=== PATIENT | female | born 1955 | race Caucasian/White ===

== ENCOUNTER 2016-06-04 23:27 | Emergency (ER) | payer BC ==
--- NOTE | 2016-06-05 02:41 | ED NURSING NOTES ---
Clinical Report - Nurses [facility] [place] [address] 06/04/2016 23:28 [id number] Triage time 00:Jun 05 2016. Acuity: LEVEL 4. Chief Complaint: (left knee pain). 00:12 06/05/16. --00:12 Lizbeth Emerson R.N. 00:07 06/05/16. BP: 168/100. HR: 104. RR: 18. O2 saturation: 100%. Temp: 97.9 F. Pain level now: 02/23. --00:12 Lizbeth Emerson R.N. Weight: 86.1 kg stated. Height/Length: 68 inches Per Patient. BMI: 28.9. --00:06 Lizbeth Emerson R.N. Medications Omeprazole Oral. --00:10 Lizbeth Emerson R.N. Allergies No Known Drug Allergy. --00:10 Lizbeth Emerson R.N. Medication/allergy information source: the patient. --00:12 Lizbeth Emerson R.N. History Arrived by private vehicle. Historian: patient. Accompanied by family. Onset. (1 month injury). 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 pain now anteriorly. severe. took tramadol at home (her dogs meds) and no relief. Has MRI scheduled for next wednesday morning). No fever, weakness, cough or difficulty breathing. Denies muscle aches. PAST MEDICAL HX: The patient is post-menopausal. SOCIAL HX: Never smoker. Occasional alcohol use. No drug use. No infectious disease exposure. ABUSE ASSESSMENT: No report of abuse. SELF HARM ASSESSMENT: A self harm assessment was performed. The patient answered "no" to the question "Have you recently felt down, depressed, or hopeless?", "Have you noticed less interest or pleasure in doing things?", "Do you have thoughts of harming or killing yourself?", "Are you here because you tried to hurt yourself?", "Have you ever tried to hurt yourself before today?", "Have you recently had thoughts about harming or killing others?" and "Do you have any dangerous items in your possession?". FALL RISK ASSESSMENT: Fall risk assessment completed. No fall risk identified. NUTRITIONAL RISK ASSESSMENT: The nutritional risk assessment revealed no deficiencies. FUNCTIONAL ASSESSMENT: Functional assessment: no impairments noted. LEARNING NEEDS ASSESSMENT: The learning needs assessment revealed no barriers. SKIN INTEGRITY ASSESSMENT: Skin integrity risk assessment completed. No skin integrity risk identified. --00:12 Lizbeth Emerson R.N. PROBLEMS: GERD. Anxiety disorder. --00:11 Lizbeth Emerson R.N. ADDITIONAL SURGERIES: Parathyroidectomy. --00:11 Lizbeth Emerson R.N. Interventions ID band on patient. --00:12 Lizbeth Emerson R.N. PHYSICAL ASSESSMENT 00:15 06/05/16. To room via wheelchair. GENERAL / NEURO / PSYCH: Alert. Oriented X 4. Appears in pain. HEENT: Pupils equal, round and reactive to light. Mucous membranes are pink. RESPIRATORY: Breath sounds within normal limits. EXTREMITIES: Extremities atraumatic. Skin intact on the extremities. Skin tenderness is present on the extremities. Pain with weight bearing. She was unable to bear weight. ( left leg is larger than right, palpable mass posterior knee. lt knee is swollen). SKIN: Skin intact. Skin is warm and dry. --00:15 Lizbeth Emerson R.N. NURSING PROGRESS NOTES 00:12 06/05/16. The initial plan of care for this patient includes an assessment with efforts to address impairment of the musculoskeletal system. This plan of care was discussed with the patient. Patient gowned. Reassurance given. Patient identifiers checked. Call light placed in reach. Side rails up x 1. Bed placed in lowest position. Brakes of bed on. Patient ready for evaluation. --00:12 Lizbeth Emerson R.N. 00:33 06/05/2016 Site #1 started via IV in the right antecubital space with an 20g angiocath, with aseptic technique and good blood return; one attempt. Blood drawn: rainbow set. Labeled in the presence of the patient and sent to the lab. Saline lock flushed with 10 mL saline. --00:38 Lizbeth Emerson R.N. 00:34 06/05/2016 Dilaudid (HYDROmorphone HCl PF) IVP 0.5 mg given over 1 minute(s) via site #1. Allergies verified, confirmed 5 rights and sedative warning given to the patient. IV patency established. IV site checked: no pain, redness, or swelling. IV flushed thoroughly pre- and post-medication administration. IVP given by RN. --00:39 Lizbeth Emerson R.N. 00:35 06/05/2016 Zofran (Ondansetron HCl) IVP 4 mg given over 1 minute(s) via site #1. Allergies verified and confirmed 5 rights. IV patency established. IV site checked: no pain, redness, or swelling. IV flushed thoroughly pre- and post-medication administration. IVP given by RN. --00:39 Lizbeth Emerson R.N. 00:53 06/05/16. Reassessment after medication administered. Overall patient status is the same- she states feels the same. ( pain not improved at all following medications). --00:53 Lizbeth Emerson R.N. 01:07 06/05/2016 Dilaudid (HYDROmorphone HCl PF) IVP 1 mg given over 1 minute(s) via site #1. Allergies verified, confirmed 5 rights and sedative warning given to the patient. IV patency established. IV site checked: no pain, redness, or swelling. IV flushed thoroughly pre- and post-medication administration. IVP given by RN. --01:10 Lizbeth Emerson R.N. 01:13 06/05/16. BP: 161/89. HR: 98. RR: 22. O2 saturation: 99%. Pain level now 8/10. --01:13 Lizbeth Emerson R.N. Care transferred and report received. --01:20 Melinda Noriega R.N. 02:45. Patient fit with new crutches. Crutch training performed by nurse; the patient demonstrated proper use. --02:55 Melinda Noriega R.N. DISPOSITION / DISCHARGE Condition at departure: improved and stable. No learning barriers present. Discharge instructions provided and reviewed with the patient. Reviewed medication(s) side effects, precautions, dosing and course information. Prescription(s) given to the patient. Patient verbalized understanding. Written instructions provided in Maori. The patient was discharged home and accompanied by spouse. She left the Emergency Department ambulatory on crutches and via private vehicle. Spouse driving. --02:53 Melinda Noriega R.N. 02:52 06/05/16. BP: 154/90. HR: 93. RR: 15. O2 saturation: 95% on room air. Temp: deferred. Lopez-Moulton pain scale: 2/10. --02:53 Melinda Noriega R.N. 02:50 06/05/2016 Site #1 removed upon discharge. Catheter intact. Manual pressure and bandage applied. --02:53 Melinda Noriega R.N. Locked/Released at 06/05/2016 2:56 by Melinda Noriega R.N.
--- NOTE | 2016-06-05 02:41 | ED CLINICAL REPORT ---
Clinical Report - Physicians/Mid Levels [facility] [address] [place] [address] 06/04/2016 23:28 [id number] Time Seen: 00:10. Arrived- By private vehicle. Historian- patient. HISTORY OF PRESENT ILLNESS Chief Complaint: LOWER EXTREMITY PAIN and SWELLING. This started about 1 month ago and is still present. Severity is described as being severe. It has become recently worse. The quality is noted to be aching. Symptoms located in the area of the left knee and left leg. The patient has had redness and swelling. ( She has a known history of a left Moulton's cyst. However her knee has become more painful and she has had increased swelling over the past month. The swelling has extended down into her lower leg.). Patient denies a recent injury. REVIEW OF SYSTEMS No chills, fever, sweats, calf pain or chest pain. No cough, difficulty breathing, palpitations, abdominal pain or constipation. No diarrhea, nausea, vomiting or urinary problems. She has an appointment pending next week for an MRI of the left knee. All systems otherwise negative, except as recorded above. PAST HISTORY Problems: GERD. Anxiety disorder. Additional Surgeries: Parathyroidectomy. Medications: Omeprazole Oral. Allergies: No Known Drug Allergy. SOCIAL HISTORY Never smoker. Occasional alcohol use. No drug use. FAMILY HISTORY No significant family medical history. Denies family medical history. ADDITIONAL NOTES The nursing notes have been reviewed. PHYSICAL EXAM Vital Signs: 06/05/2016 00:08 BP: 168/100. HR: 104. RR: 18. O2 saturation: 100%. Temp: 97.9 F. Pain level now: 10/10. Have been reviewed. Appearance: Alert. Eyes: Pupils equal, round and reactive to light. ENT: Pharynx normal. Neck: Normal inspection. Neck supple. CVS: Heart sounds normal. Respiratory: No respiratory distress. Breath sounds normal. Abdomen: Soft and nontender. No organomegaly. Skin: Skin warm and dry. Normal skin color. Normal skin turgor. Extremities: Left knee: severe tenderness and moderate swelling located in the posterior knee. Limited ROM secondary to pain (diminished flexion). Medium sized joint effusion present. No ligamentous laxity present. No deformity. Mild edema of the left lower extremity. No calf tenderness. LABS, X-RAYS, AND EKG Lt Knee X-ray: (Effusion with mild joint space narrowing). The X-rays were independently viewed by me. Lower Extremity Sonography: Vessels patent. left knee large Moulton's cyst discussed with the nuclear medicine chief technologist. The exam was performed by a cephalometric technician. The study was independently viewed by me. Laboratory Tests: CBC w Diff: (ALTHEA: 06/05/2016 00:35) ( MsgRcvd 06/05/2016 00:53) Final results Test Result Flag Units (Reference) WHITE BLOOD COUNT 9.1 K/uL (4.5-11.5) RED BLOOD COUNT 4.21 M/uL (4.00-5.20) HEMOGLOBIN 12.0 gm/dL (12.0-16.0) HEMATOCRIT 35.7 L % (36.0-46.0) MEAN CELL VOLUME 85 fL (80-100) MEAN CORPUSCULAR HGB 29 pg (26-34) MEAN CORPUSCULAR HGB CONC 34 g/dL (31-37) RED CELL DISTRIBUTION WIDTH 13.6 % (11.6-14.8) PLATELET COUNT 240 K/uL (150-400) NEUTROPHIL % 77.2 H % (50-75) LYMPH % 13.8 L % (25-40) MONO % 7.2 % (3-14) EOSINOPHIL % 1.4 % (0-4) BASOPHIL % 0.4 % (0-2) PT with INR: (ALTHEA: 06/05/2016 00:35) ( MsgRcvd 06/05/2016 00:53) Final results Test Result Flag Units (Reference) INR 0.9 (0.8-1.2) Low Intensity Therapy: INR 1.5-2.0 PT range 18.5-23.1Mod.Intensity Therapy: INR 2.0-3.0 PT range 23.1-31.5High Intensity Therapy: INR 2.5-3.5 PT range 27.4-35.5High Intensity Therapy 2: INR 3.0-4.0 PT range 31.5-39.3 APTT 28 SECONDS (24-34) CMP: (ALTHEA: 06/05/2016 00:35) ( MsgRcvd 06/05/2016 01:01) Final results Test Result Flag Units (Reference) GLUCOSE 123 H mg/dL (70-110) BUN 18 mg/dL (7-18) CREATININE 0.9 mg/dL (0.6-1.3) Estimated GFR >60 mL/min Estimated GFR- >60 mL/min Note: Persistent reduction over 3 months in eGFR<60 mL/min/1.73 m2 defines CKD. Patients with eGFR values>=60 mL/min/1.73 m2 may also have CKD if evidence ofpersistent proteinuria. Additional information may be foundat www.kidney.org. SODIUM 141 mmol/L (136-145) POTASSIUM 3.5 mmol/L (3.5-5.1) CHLORIDE 105 mmol/L (98-107) CARBON DIOXIDE 27 mmol/L (21-32) CALCIUM 8.5 mg/dL (8.5-10.1) TOTAL PROTEIN 6.6 g/dL (6.4-8.2) ALBUMIN 3.7 g/dL (3.3-5.0) BILIRUBIN, TOTAL 0.8 mg/dL (0.0-1.0) ALKALINE PHOSPHATASE 70 U/L (46-116) AST (SGOT) 19 U/L (15-37) ALT (SGPT) 23 U/L (12-78) . PROGRESS AND PROCEDURES Course of Care: Patient is stable. Patient/family counseled. Old medical records ordered. Old records unavailable. Disposition: Discharged. Condition: stable. CLINICAL IMPRESSION Joint effusion- left knee. Arthritis of the left knee. Moulton's cyst; left knee. INSTRUCTIONS Apply ice for 20 minutes four times a day until released. Don't apply ice directly to skin and don't use while asleep. Use crutches until released. No driving or operating machinery while taking medication. Sedative medication was given during your visit. Warnings: Further evaluation is necessary. GENERAL WARNINGS: Return or contact your physician immediately if your condition worsens or changes unexpectedly, if not improving as expected, or if other problems arise. Prescription Medications: Hydrocodone/APAP 5mg/325mg: take 1 to 2 orally every 6 hours as needed for pain. Dispense fifteen (15). No refills. OTC Medications: Motrin (available over the counter): take according to label instructions. Follow-up: Follow up with your doctor Wednesday in three days. Call for an appointment. Follow up with an orthopedic surgeon- as recommended by your primary care physician. Understanding of the discharge instructions verbalized by patient and family. (Electronically signed by Zurdo Campbell MD 06/09/2016 1:05)
--- NOTE | 2016-06-05 02:41 | ED ORDER SUMMARY ---
..... Patient: JAMESON ROA OrderSheet [facility] VisitID: [id number] [place] [address] 60y, F Registration Date/Time: 06/04/2016 ORDER SHEET Weight: 86.1 kg (stated) Allergies: No Known Drug Allergy GENERAL ORDERS: US Venous Left Urgent (00:06/05/2016 Diego MONROE) (Ack 0:29 AMcQuoid ER Tech1) (2:05 Carolger) CBC w Diff Urgent (00:06/05/2016 Diego MONROE) (Ack 0:29 AMcQuoid ER Tech1) (0:38 EInderbitzen R.N.) CMP Urgent (00:06/05/2016 Diego MONROE) (Ack 0:29 AMcQuoid ER Tech1) (0:38 EInderbitzen R.N.) PT with INR Urgent (00:06/05/2016 Diego MONROE) (Ack 0:29 AMcQuoid ER Tech1) (0:38 EInderbitzen R.N.) PTT Urgent (00:06/05/2016 Diego MONROE) (Ack 0:29 AMcQuoid ER Tech1) (0:38 EInderbitzen R.N.) Knee 4V Left Urgent (01:06/05/2016 Diego MONROE) (Ack 1:09 AMcQuoid ER Tech1) (2:05 Liss) Crutches (02:39 06/05/2016 Diego MONROE) (Ack 2:39 RCollier R.N.) (2:55 RCollier R.N.) MEDICATION ORDERS: IV FLUIDS: IV Saline Lock (00:06/05/2016 Diego MONROE) (0:39 EInderbitzen R.N.) Dilaudid IV 0.5 mg (HIGH ALERT MEDICATION, NOW) (00:06/05/2016 Diego MONROE) (0:39 EInderbitzen R.N.) Zofran IV 4 mg (NOW) (00:06/05/2016 Diego MONROE) (0:39 EInderbitzen R.N.) Dilaudid IV 1 mg (HIGH ALERT MEDICATION, NOW) (01:03 06/05/2016 Diego MONROE) (1:10 Heather Mariee) ORDER SHEET NOTES: [Electronically signed by Melinda Noriega R.N. (02:56 06/05/2016)] [Electronically signed by Zurdo Campbell MD (01:05 06/09/2016)] [Electronically locked/signed by Melinda Noriega R.N. (02:56 06/05/2016)]
--- NOTE | 2016-06-05 02:41 | ED ORDER SUMMARY ---
..... Patient: JAMESON ROA OrderSheet VisitID: [id number] [place] [address] 60y, F Registration Date/Time: 06/04/2016 ORDER SHEET Weight: 86.1 kg (stated) Allergies: No Known Drug Allergy GENERAL ORDERS: US Venous Left Urgent (00:06/05/2016 Diego MONROE) (Ack 0:29 AMcQuoid ER Tech1) (2:05 Carolger) CBC w Diff Urgent (00:06/05/2016 Diego MONROE) (Ack 0:29 AMcQuoid ER Tech1) (0:38 EInderbitzen R.N.) CMP Urgent (00:06/05/2016 Diego MONROE) (Ack 0:29 AMcQuoid ER Tech1) (0:38 EInderbitzen R.N.) PT with INR Urgent (00:06/05/2016 Diego MONROE) (Ack 0:29 AMcQuoid ER Tech1) (0:38 EInderbitzen R.N.) PTT Urgent (00:06/05/2016 Diego MONROE) (Ack 0:29 AMcQuoid ER Tech1) (0:38 EInderbitzen R.N.) Knee 4V Left Urgent (01:06/05/2016 Diego MONROE) (Ack 1:09 AMcQuoid ER Tech1) (2:05 Liss) Crutches (02:39 06/05/2016 Diego MONROE) (Ack 2:39 RCollier R.N.) (2:55 RCollier R.N.) MEDICATION ORDERS: IV FLUIDS: IV Saline Lock (00:06/05/2016 Diego MONROE) (0:39 EInderbitzen R.N.) Dilaudid IV 0.5 mg (HIGH ALERT MEDICATION, NOW) (00:06/05/2016 Diego MONROE) (0:39 EInderbitzen R.N.) Zofran IV 4 mg (NOW) (00:06/05/2016 Diego MONROE) (0:39 EInderbitzen R.N.) Dilaudid IV 1 mg (HIGH ALERT MEDICATION, NOW) (01:03 06/05/2016 Diego MONROE) (1:10 Heather Mariee) ORDER SHEET NOTES: [Electronically signed by Melinda Noriega R.N. (02:56 06/05/2016)] [Electronically signed by Zurdo Campbell MD (01:05 06/09/2016)] [Electronically locked/signed by Melinda Noriega R.N. (02:56 06/05/2016)]
--- NOTE | 2016-06-05 09:00 | DIAGNOSTIC IMAGING REPORT ---
PROCEDURE: US VENOUS - LEFT EXT INDICATION: Left lower extremity pain and swelling, initial encounter TECHNIQUE: Duplex sonography of the deep venous system in the left lower extremity was performed. Compression and augmentation techniques were used. COMPARISON: None. FINDINGS: Normal compression of the greater saphenous, common femoral, superficial femoral, popliteal, peroneal, and posterior tibial veins. Normal augmentation. There is no evidence of superficial or deep venous thrombosis. There is a 7.2 x 3.3 x 2.8 cm hypoechoic avascular solid appearing mass in the popliteal fossa suggestive of a popliteal cyst. IMPRESSION: 1. No evidence of a left lower extremity DVT 2. Left popliteal hypoechoic mass most consistent with a popliteal cyst.
--- NOTE | 2016-06-05 09:02 | DIAGNOSTIC IMAGING REPORT ---
PROCEDURE: XR KNEE 4 VIEWS - LEFT INDICATION: PAIN TECHNIQUE: Four views. COMPARISON: None. FINDINGS: Mild tricompartment degenerative changes. No fracture or suspicious osseous lesion. There is a large suprapatellar effusion. IMPRESSION: 1. Large suprapatellar effusion which may indicate internal derangement 2. Mild tricompartment degenerative changes
--- NOTE | 2016-06-09 01:06 | ED MAR SUMMARY ---
..... Medication Administration Record [facility] [address] [place] [address] Patient: JAMESON ROA Visit ID: [id number] 60y, F Weight: 86.1 kg Height/Length: 68 in BMI: 28.9 ALLERGIES: No Known Drug Allergy Given 00:34 06/05/2016 Lizbeth Emerson R.N. Medication Administered: DILAUDID [IVP] (HYDROMORPHONE HCL PF), Dose: 0.5 mg IVP over 1 minute(s), Site: #1 right AC. Medication Ordered: Dilaudid IV 0.5 mg (HIGH ALERT MEDICATION, NOW). Given 00:35 06/05/2016 Lizbeth Emerson R.N. Medication Administered: ZOFRAN [IVP] (ONDANSETRON HCL), Dose: 4 mg IVP over 1 minute(s), Site: #1 right AC. Medication Ordered: Zofran IV 4 mg (NOW). Given 01:07 06/05/2016 Lizbeth Emerson R.N. Medication Administered: DILAUDID [IVP] (HYDROMORPHONE HCL PF), Dose: 1 mg IVP over 1 minute(s), Site: #1 right AC. Medication Ordered: Dilaudid IV 1 mg (HIGH ALERT MEDICATION, NOW).
--- NOTE | 2016-06-09 01:06 | ED MAR SUMMARY ---
..... Medication Administration Record [facility] [address] [place] [address] Patient: JAMESON ROA Visit ID: [id number] 60y, F Weight: 86.1 kg Height/Length: 68 in BMI: 28.9 ALLERGIES: No Known Drug Allergy Given 00:34 06/05/2016 Lizbeth Emerson R.N. Medication Administered: DILAUDID [IVP] (HYDROMORPHONE HCL PF), Dose: 0.5 mg IVP over 1 minute(s), Site: #1 right AC. Medication Ordered: Dilaudid IV 0.5 mg (HIGH ALERT MEDICATION, NOW). Given 00:35 06/05/2016 Lizbeth Emerson R.N. Medication Administered: ZOFRAN [IVP] (ONDANSETRON HCL), Dose: 4 mg IVP over 1 minute(s), Site: #1 right AC. Medication Ordered: Zofran IV 4 mg (NOW). Given 01:07 06/05/2016 Lizbeth Emerson R.N. Medication Administered: DILAUDID [IVP] (HYDROMORPHONE HCL PF), Dose: 1 mg IVP over 1 minute(s), Site: #1 right AC. Medication Ordered: Dilaudid IV 1 mg (HIGH ALERT MEDICATION, NOW).
--- NOTE | 2016-06-09 01:06 | ED MED RECONCILIATION SUMMARY ---
Patient: JAMESON ROA Medication Reconciliation Report [facility] VisitID: [id number] [address] [place] [address] 60y, F Registration Date/Time: 06/04/2016 Weight: 86.1 kg Height/Length: 68 in. BMI: 28.9 ALLERGIES: No Known Drug Allergy The patient's Home Medications are listed below: THE FOLLOWING MEDICATIONS NEED TO BE RECONCILED: Omeprazole Oral The source(s) of the original Home Medication information: patient The following Medications were given to the patient in the Emergency Department: Dilaudid [IVP] IVP 0.5 mg, administered: 06/05/2016 12:34:00 AM Zofran [IVP] IVP 4 mg, administered: 06/05/2016 12:35:00 AM Dilaudid [IVP] IVP 1 mg, administered: 06/05/2016 1:07:00 AM The following Medications were prescribed to the patient: Motrin (available over the counter): take according to label instructions. -- Zurdo Campbell MD Hydrocodone/APAP 5mg/325mg: take 1 to 2 orally every 6 hours as needed for pain. Dispense fifteen (15). No refills. -- Zurdo Campbell MD
--- NOTE | 2016-06-09 01:06 | ED MED RECONCILIATION SUMMARY ---
Patient: JAMESON ROA Medication Reconciliation Report [facility] VisitID: [id number] [address] [place] [address] 60y, F Registration Date/Time: 06/04/2016 Weight: 86.1 kg Height/Length: 68 in. BMI: 28.9 ALLERGIES: No Known Drug Allergy The patient's Home Medications are listed below: THE FOLLOWING MEDICATIONS NEED TO BE RECONCILED: Omeprazole Oral The source(s) of the original Home Medication information: patient The following Medications were given to the patient in the Emergency Department: Dilaudid [IVP] IVP 0.5 mg, administered: 06/05/2016 12:34:00 AM Zofran [IVP] IVP 4 mg, administered: 06/05/2016 12:35:00 AM Dilaudid [IVP] IVP 1 mg, administered: 06/05/2016 1:07:00 AM The following Medications were prescribed to the patient: Motrin (available over the counter): take according to label instructions. -- Zurdo Campbell MD Hydrocodone/APAP 5mg/325mg: take 1 to 2 orally every 6 hours as needed for pain. Dispense fifteen (15). No refills. -- Zurdo Campbell MD
--- NOTE | 2016-06-09 01:06 | ED DISCHARGE INSTRUCTIONS ---
Patient: JAMESON ROA General Instructions [facility] VisitID: [id number] [place] [address] 60y, F Registration Date/Time: 06/04/2016 Joint effusion- left knee. Arthritis of the left knee. Moulton's cyst; left knee. INSTRUCTIONS Apply ice for 20 minutes four times a day until released. Don't apply ice directly to skin and don't use while asleep. Use crutches until released. No driving or operating machinery while taking medication. Sedative medication was given during your visit. Warnings: Further evaluation is necessary. GENERAL WARNINGS: Return or contact your physician immediately if your condition worsens or changes unexpectedly, if not improving as expected, or if other problems arise. Prescription Medications: Hydrocodone/APAP 5mg/325mg: take 1 to 2 orally every 6 hours as needed for pain. Dispense fifteen (15). No refills. OTC Medications: Motrin (available over the counter): take according to label instructions. Follow-up: Follow up with your doctor Wednesday in three days. Call for an appointment. Follow up with an orthopedic surgeon- as recommended by your primary care physician. Understanding of the discharge instructions verbalized by patient and family. ADDITIONAL INFORMATION Osteoarthritis Osteoarthritis (also called Degenerative Joint Disease) is the most common form of arthritis in adults over 50. It is not the same as Rheumatoid Arthritis. The exact cause is not known but may be related to excess wear and tear on the joint over a long period of time. Prior injury to that joint, or repeated stress on a joint can also cause this type of arthritis. Osteoarthritis most often affects the hands, knees, spine and hips (in that order). The most common symptoms are joint stiffness, pain and swelling. Home Care: When a joint is more sore than usual, rest that joint for a day or two. Heat is very helpful. This can be provided by taking hot baths, applying a heating pad for up to 30 minutes at a time. Because symptoms are usually worse in the morning, many patients like to take a hot bath just after awakening to relax the muscle and soothe the joints. Exercise is the most important part of home treatment for osteoarthritis. This prevents the muscles and ligaments around the joint from becoming weak and helps maintain the full range of joint motion. This limits further damage to the joint. If you are overweight, this puts a lot of extra strain on weight-bearing joints of the lower back, hips, knees, feet and ankles. Losing weight will improve your arthritis symptoms in these joints. Talk to your doctor about a safe and effective weight loss program for yourself. Anti-inflammatory medicine such as ibuprofen (Advil, Motrin) or naproxen (Aleve) is often used to treat this condition. If this alone is not helping, your doctor may prescribe a stronger medicine. If narcotic pain medicines have been prescribed, they should be used in addition to anti-inflammatory drugs and only for severe pain. Follow Up with your doctor as advised by our staff. Get Prompt Medical Attention if any of the following occur: Redness or swelling of a painful joint Fever of 100.4F (38C) or higher, or as directed by your healthcare provider Worsening joint pain Arthralgia Arthralgia is the term for pain in or around the joint. It is not a disease but a symptom. This may involve one or more joints. Sometimes arthralgias move from joint to joint. There are many causes for joint pain. These include: Injury Osteoarthritis (from wearing out of the joint surface) Rheumatoid arthritis (an autoimmune disease) Gout (inflammation of the joint due to crystals in the joint fluid) Infection inside the joint Bursitis (inflammation of the fluid-filled sacs around the joint) Lupus and other collagen-vascular disease Home Care: Rest the involved joint(s) until your symptoms improve. You may use acetaminophen (Tylenol) or ibuprofen (Motrin, Advil) to control pain, unless another pain medicine was prescribed. [NOTE: If you have chronic liver or kidney disease or ever had a stomach ulcer or GI bleeding, talk with your doctor before using these medicines.] Follow Up with your doctor or as advised by our staff. [NOTE: If you had an X-ray it will be reviewed by a specialist. You will be notified of any new findings that may affect your care.] Return Promptly or contact your doctor if any of the following occurs: Pain increases Pain moves to other joints New rash appears Fever of 100.4F (38C) or higher, or as directed by your healthcare provider BakerS Cyst The knee joint is surrounded by a capsule filled with lubricating fluid called synovial fluid. This capsule connects to a small pouch behind the knee, called a bursa. Irritation inside the joint from arthritis or a torn cartilage causes excess synovial fluid to form. This builds pressure inside the joint and the extra fluid flows into the bursa behind the knee. This creates a bulge in the back of your knee. This bulge is called a Bakers cyst. A small Bakers cyst usually causes no symptoms. A larger cyst can cause knee pain or a feeling of pressure behind the knee when you try to fully straighten or bend that joint. A Bakers cyst can leak, causing the fluid to move between the tissues of the lower leg. This results in swelling, pain and redness. Treatment of a Bakers cyst involves removal of the excess fluid and injection of a cortisone-type medicine. If excess fluid is a result of a torn cartilage, an operation to repair the cartilage may be the best treatment option. If arthritis is the cause of the excess fluid, and it does not respond to medical treatment, the cyst can be surgically removed. Home Care If you are having knee pain, stay off the affected leg as much as possible until symptoms improve. Make an ice pack (ice cubes in a plastic bag, wrapped in a towel) and apply to the painful area for 20 minutes every 1-2 hours the first day. You may continue to use ice packs 3-4 times a day for the next few days. You may use acetaminophen (Tylenol) or ibuprofen (Motrin, Advil) to control pain, unless another medicine was prescribed. [NOTE: If you have chronic liver or kidney disease or ever had a stomach ulcer or GI bleeding, talk with your doctor before using these medicines.] If crutches or a walker have been recommended, do not bear full weight on the injured leg until you can do so without pain. Check with your doctor before returning to sports or full work duties. If you were given a Velcro knee brace, you may open the brace to apply ice. Unless told otherwise, you may remove the brace to bathe and sleep. Follow Up with your doctor within 1-2 weeks or as advised by our staff. [NOTE: If x-rays were taken, they will be reviewed by a radiologist. You will be notified of any new findings that may affect your care.] Return Promptly or contact your doctor if any of the following occur: Toes or foot becomes swollen, cold, blue, numb or tingly Pain or swelling increases Warmth or redness appears over the knee Redness, swelling or pain in the calf or lower leg Knee Effusion A knee effusion is sometimes calledwater on the knee. The knee joint normally contains less than one ounce of lubricating fluid. Injury or inflammation of the knee joint causes extra fluid to collect there. When this occurs, the knee joint looks swollen and is usually painful. There may be difficulty in fully bending the knee. The most common cause of knee effusion is osteoarthritis due to wear and tear on the joint cartilage. Other causes include injury to the cartilage, inflammatory arthritis (such as gout or rheumatoid arthritis), and infection of the joint. If the cause of your knee effusion is not certain, a needle aspiration may be performed. This procedure removes a sample of joint fluid from the knee for testing. This is done with a local anesthetic. Removing excess fluid may also relieve swelling and pain. Home Care: Limit your activities. Avoid weight-bearing activities as much as possible when your knee is painful and swollen. Keep your leg elevated to reduce pain and swelling. When sleeping, place a pillow under the injured leg. When sitting, support the injured leg so it is level with your waist. This is very important during the first 48 hours. Apply an ice pack (ice cubes in a plastic bag, wrapped in a towel) over the injured area for 20 minutes every 1-2 hours the first day. Continue with ice packs 3-4 times a day for the next two days, then as needed for the relief of pain and swelling. You may use acetaminophen (Tylenol) or ibuprofen (Motrin, Advil) to control pain, unless another pain medicine was prescribed. [NOTE: If you have chronic liver or kidney disease or have ever had a stomach ulcer, talk with your doctor before using these medicines.] Ifcrutches or a walker have been recommended, do not bear full weight on the injured leg until you can do so without pain. Check with your doctor before returning to sports or full work duties. If you were given a Velcro knee brace: You may open the splint to apply ice. You may remove the splint to bathe and sleep, unless told otherwise. Follow Up with your doctor or as advised by our staff. If you are overweight, talk to your doctor about a weight loss program. The excess weight puts extra strain on your knees. Return Promptly or contact your doctor if any of the following occur: Increasing pain, redness or swelling of the knee Fever of 100.4F (38C) or higher, or as directed by your healthcare provider Crutch Walking Crutch Adjustment Make sure the crutches you use are adjusted to fit you. When you stand, there should be room to fit 2-3 fingers between the top of the crutch and your armpit. Your elbow should be slightly bent when holding the hand baker biscuit. Crutch Walking: Place the crutches forward 12" in front of and 6" to the side of your feet. Lean your weight forward as you push down on the handgrips. Your weight should be on your hands and yourstrong leg, not your armpits . Let your body swing through, landing on the strong leg. Advance the crutches forward again. The crutch and the injured leg should move together. Going Up Steps: ("Up with the good") With both crutches on the same step as your feet, push down on the handgrips. Balancing with very light pressure on the weak leg, let your hands support your weight as you raise your strong leg onto the next higher step. Transfer all your weight to your strong leg (still bent) as you move the crutches up to the next step alongside the strong leg. With your weight evenly balanced on the two crutches and your strong leg, straighten your strong knee as you raise the weak leg up to the next step. Going Down Steps: ("Down with the bad") With both crutches on the same step as your feet, push down on the handgrips. With your weight evenly balanced on the two crutches and your strong leg, bend your strong knee as you lower the weak leg down to the next step. Let your strong leg support you (still bent) as you move the crutches down alongside the weak leg. Transfer your weight to your hands, balancing with very light pressure on the weak leg as you lower your strong leg alongside your weak leg. Hydrocodone Bitartrate, Acetaminophen Oral tablet What is this medicine? ACETAMINOPHEN; HYDROCODONE (a set a ERIN isma fen; pipe droe KOE done) is a pain reliever. It is used to treat mild to moderate pain. How should I use this medicine? Take this medicine by mouth. Swallow it with a full glass of water. Follow the directions on the prescription label. If the medicine upsets your stomach, take the medicine with food or milk. Do not take more than you are told to take. Talk to your fan mail editor regarding the use of this medicine in children. This medicine is not approved for use in children. What side effects may I notice from receiving this medicine? Side effects that you should report to your doctor or health director of health care marketing as soon as possible: allergic reactions like skin rash, itching or hives, swelling of the face, lips, or tongue breathing problems confusion feeling faint or lightheaded, falls stomach pain yellowing of the eyes or skin Side effects that usually do not require medical attention (report to your doctor or health director of health care marketing if they continue or are bothersome): nausea, vomiting stomach upset What may interact with this medicine? alcohol antihistamines isoniazid medicines for depression, anxiety, or psychotic disturbances medicines for sleep muscle relaxants naltrexone narcotic medicines (opiates) for pain phenobarbital ritonavir tramadol What if I miss a dose? If you miss a dose, take it as soon as you can. If it is almost time for your next dose, take only that dose. Do not take double or extra doses. Where should I keep my medicine? Keep out of the reach of children. This medicine can be abused. Keep your medicine in a safe place to protect it from theft. Do not share this medicine with anyone. Selling or giving away this medicine is dangerous and against the law. Store at room temperature between 15 and 30 degrees C (59 and 86 degrees F). Protect from light. Keep container tightly closed. Throw away any unused medicine after the expiration date. Discard unused medicine and used packaging carefully. Pets and children can be harmed if they find used or lost packages. What should I tell my health care provider before I take this medicine? They need to know if you have any of these conditions: brain tumor Crohn's disease, inflammatory bowel disease, or ulcerative colitis drink more than 3 alcohol-containing drinks per day drug abuse or addiction head injury heart or circulation problems kidney disease or problems going to the bathroom liver disease lung disease, asthma, or breathing problems an unusual or allergic reaction to acetaminophen, hydrocodone, other opioid analgesics, other medicines, foods, dyes, or preservatives or trying to get breast-feeding What should I watch for while using this medicine? Tell your doctor or health director of health care marketing if your pain does not go away, if it gets worse, or if you have new or a different type of pain. You may develop tolerance to the medicine. Tolerance means that you will need a higher dose of the medicine for pain relief. Tolerance is normal and is expected if you take the medicine for a long time. Do not suddenly stop taking your medicine because you may develop a severe reaction. Your body becomes used to the medicine. This does NOT mean you are addicted. Addiction is a behavior related to getting and using a drug for a non-medical reason. If you have pain, you have a medical reason to take pain medicine. Your doctor will tell you how much medicine to take. If your doctor wants you to stop the medicine, the dose will be slowly lowered over time to avoid any side effects. You may get drowsy or dizzy when you first start taking the medicine or change doses. Do not drive, use machinery, or do anything that may be dangerous until you know how the medicine affects you. Stand or sit up slowly. There are different types of narcotic medicines (opiates) for pain. If you take more than one type at the same time, you may have more side effects. Give your health care provider a list of all medicines you use. Your doctor will tell you how much medicine to take. Do not take more medicine than directed. Call emergency for help if you have problems breathing. The medicine will cause constipation. Try to have a bowel movement at least every 2 to 3 days. If you do not have a bowel movement for 3 days, call your doctor or health director of health care marketing. Too much acetaminophen can be very dangerous. Do not take Tylenol (acetaminophen) or medicines that contain acetaminophen with this medicine. Many non-prescription medicines contain acetaminophen. Always read the labels carefully. Ibuprofen Oral tablet What is this medicine? IBUPROFEN (eye BYOO proe fen) is a non-steroidal anti-inflammatory drug (NSAID). It is used for dental pain, fever, headaches or migraines, osteoarthritis, rheumatoid arthritis, or painful monthly periods. It can also relieve minor aches and pains caused by a cold, flu, or sore throat. How should I use this medicine? Take this medicine by mouth with a glass of water. Follow the directions on the prescription label. Take this medicine with food if your stomach gets upset. Try to not lie down for at least 10 minutes after you take the medicine. Take your medicine at regular intervals. Do not take your medicine more often than directed. A special MedGuide will be given to you by the pharmacist with each prescription and refill. Be sure to read this information carefully each time. Talk to your fan mail editor regarding the use of this medicine in children. Special care may be needed. What side effects may I notice from receiving this medicine? Side effects that you should report to your doctor or health director of health care marketing as soon as possible: allergic reactions like skin rash, itching or hives, swelling of the face, lips, or tongue black or bloody stools, blood in the urine or in vomit breathing problems changes in vision chest pain general ill feeling or flu-like symptoms nausea or vomiting redness, blistering, peeling or loosening of the skin, including inside the mouth slurred speech or weakness on one side of the body stomach pain unexplained weight gain or swelling unusually weak or tired yellowing of eyes or skin Side effects that usually do not require medical attention (report to your doctor or health director of health care marketing if they continue or are bothersome): constipation or diarrhea dizziness gas or heartburn stomach upset What may interact with this medicine? Do not take this medicine with any of the following medications: cidofovir ketorolac methotrexate pemetrexed This medicine may also interact with the following medications: alcohol aspirin diuretics lithium other drugs for inflammation like prednisone warfarin What if I miss a dose? If you miss a dose, take it as soon as you can. If it is almost time for your next dose, take only that dose. Do not take double or extra doses. Where should I keep my medicine? Keep out of the reach of children. Store at room temperature between 15 and 30 degrees C (59 and 86 degrees F). Keep container tightly closed. Throw away any unused medicine after the expiration date. What should I tell my health care provider before I take this medicine? They need to know if you have any of these conditions: asthma cigarette smoker drink more than 3 alcohol containing drinks a day heart disease or circulation problems such as heart failure or leg edema (fluid retention) high blood pressure kidney disease liver disease stomach bleeding or ulcers an unusual or allergic reaction to ibuprofen, aspirin, other NSAIDS, other medicines, foods, dyes, or preservatives or trying to get breast-feeding What should I watch for while using this medicine? Tell your doctor or healthcare professional if your symptoms do not start to get better or if they get worse. This medicine does not prevent heart attack or stroke. In fact, this medicine may increase the chance of a heart attack or stroke. The chance may increase with longer use of this medicine and in people who have heart disease. If you take aspirin to prevent heart attack or stroke, talk with your doctor or health director of health care marketing. Do not take other medicines that contain aspirin, ibuprofen, or naproxen with this medicine. Side effects such as stomach upset, nausea, or ulcers may be more likely to occur. Many medicines available without a prescription should not be taken with this medicine. This medicine can cause ulcers and bleeding in the stomach and intestines at any time during treatment. Ulcers and bleeding can happen without warning symptoms and can cause . To reduce your risk, do not smoke cigarettes or drink alcohol while you are taking this medicine. You may get drowsy or dizzy. Do not drive, use machinery, or do anything that needs mental alertness until you know how this medicine affects you. Do not stand or sit up quickly, especially if you are an older patient. This reduces the risk of dizzy or fainting spells. This medicine can cause you to bleed more easily. Try to avoid damage to your teeth and gums when you brush or floss your teeth. You have been given the following additional information: Osteoarthritis Arthralgia Moulton's Cyst Knee Effusion Crutch Walking Hydrocodone Bitartrate, Acetaminophen Oral tablet Ibuprofen Oral tablet No driving or operating machinery while taking medication. Sedative medication was given during your visit. (Electronically signed by Zurdo Campbell MD 06/09/2016 1:05)
== END 2016-06-05 02:53 | disposition home or self-care (01) ==
LOC: ED SRH 23:27
DX: M25.462 Effusion, left knee (principal); M71.22 Synovial cyst of popliteal space [Baker], left knee; M17.9 Osteoarthritis of knee, unspecified

== ENCOUNTER → 2016-06-06 | Outpatient (CLI) | payer BC ==
--- NOTE | 2016-06-06 13:00 | DIAGNOSTIC IMAGING REPORT ---
PROCEDURE: MR LOWER EXT JOINT WO CONT-LT INDICATION: CHRONIC LEFT KNEE PAIN TECHNIQUE: PD and FAT-SAT PD sagittal and coronal images. FAT-SAT PD axial images. High-resolution T2 sagittal images of the cruciate ligaments. (Total of 6 sequences). COMPARISON: Left knee x-ray 06/05/2016 FINDINGS: Mild tricompartment spur formation. Normal collateral and cruciate ligaments. Grade 1 degeneration of the medial meniscus but no evidence of a tear. Meniscocapsular separation of the lateral meniscus posterior horn. Mild chondromalacia of the medial compartment. Normal quadriceps tendon. Lax patellar tendon. Severe chondromalacia patella with subchondral changes. Large suprapatellar effusion with debris. 7.5 cm popliteal cyst with debris. Bones are unremarkable. IMPRESSION: 1. Mild tricompartment degenerative changes 2. Meniscocapsular separation of the lateral meniscus posterior horn 3. Severe chondromalacia patella and mild chondromalacia of the medial compartment 4. Lax patellar tendon 5. Large suprapatellar effusion with debris 6. 7.5 cm popliteal cyst with debris
== END ==
LOC: MRI SRH 10:56
DX: M22.42 Chondromalacia patellae, left knee (principal); M25.462 Effusion, left knee; M71.22 Synovial cyst of popliteal space [Baker], left knee; M23.8X2 Other internal derangements of left knee